=== PATIENT | male | born 1965 | race Caucasian/White ===

== ENCOUNTER 2017-03-29 20:06 | Emergency (ER) | payer OTHER ==
[~2017-03-29] VITALS: Ht 177.8 cm; Wt 100.0 kg
[~2017-03-29 20:06] MED LIST: OXYC5 PO; TAB-TAB PO
[2017-03-29 20:08] VITALS: BP 158/84; PULSE 84; RESP 16; TEMP 98.2; O2SAT 97
--- NOTE | 2017-03-29 21:35 | PD ---
Physical Exam Date Seen by Provider: Mar 29, 2017 Time Seen by Provider: 21:32 Narrative 51 y/o male with injury to Right Calf while riding a Skateboard. Patient heard a loud "pop". Now has decreased ability to Platar Flex. Pain 04/01. Vital signs reviewed. Patient stable. Awaiting Bed placement. Data Data Last Documented VS Vital Signs Date Time Temp Pulse Resp B/P Pulse Ox O2 Delivery O2 Flow Rate FiO2 03/29/17 20:08 98.2 84 16 158/84 97 Room Air [facility] Medical Record Reviewed: Yes Supervised Visit with DEMETRIO: Yes Condition: Stable Ernesto Hill Mar 29, 2017 21:35
[2017-03-29] MEDS ORDERED: HYDR-3533 PO (21:53)
--- NOTE | 2017-03-29 21:58 | PD ---
HPI Chief Complaint: Injury Time Seen by Provider: 21:55 Travel History International Travel<30 days: No Contact w/Intl Traveler<30days: No Traveled to known affect area: No History of Present Illness HPI 51-year-old white male presents to emergency Department with complaints of right posterior calf pain after riding a skateboard this evening. He states that he had felt and heard a pop in his Achilles this evening as he pushed off with his right foot. He has not been able to plantarflex since this injury. Patient denies any sensory loss. No other injuries. Pain is moderate. Worse with bearing. No alleviating factors. PFSH Past Medical History Narrative Medical Hypertension Autoimmune Disease: No Depression: Yes Cancer: No Cardiovascular Problems: No Endocrine: No Genitourinary: No Immune Disorder: No Musculoskeletal: Yes (back) Neurologic: No Psychiatric: Yes Reproductive: No Respiratory: No Past Surgical History Narrative Surgical Tonsillectomy Abdominal Surgery: No Cardiac Surgery: No Ear Surgery: No Endocrine Surgery: No Eye Surgery: No Genitourinary Surgery: No Gynecologic Surgery: No Oral Surgery: No Thoracic Surgery: No Tonsillectomy: Yes Social History Alcohol Use: Yes (OCC) Tobacco Use: Yes (PPD) Substance Use: Yes (POT OCC) Allergies-Medications (Allergen,Severity, Reaction): Coded Allergies: Sulfa (Verified Allergy, Severe, 03/29/17) Reported Meds & Prescriptions Reported Meds & Active Scripts Active Lortab (Hydrocodone-Acetaminophen) 5-325 Mg Tab 1 Tab PO Q4H PRN Reported Multivitamin (Multivitamins) 1 Tab Tab 1 Tab PO DAILY Oxycodone (Oxycodone HCl) 5 Mg Cap 15 Mg PO Q4HPRN Review of Systems Except as stated in HPI: all other systems reviewed are Neg Physical Exam Narrative GENERAL: This is a well-nourished, well-developed patient, in no apparent distress. SKIN: No rashes, ecchymoses or lesions. Warm and dry. HEAD: Atraumatic. Normocephalic. EYES: PERRL, EOMI, no discharge or injection. No scleral icterus. EARS: Clear NOSE: Nasal turbinates appear normal. THROAT: Mucosa pink and moist. Airway patent. NECK: Trachea midline. supple, moves head freely. LUNGS: Clear to auscultation. CV: Regular in rhythm. ABDOMEN: Soft nontender. EXT: No clubbing cyanosis or edema. Examination of the right lower extremity reveals a deficit at the insertion of the Achilles tendon of the right ankle. He has a negative Metcalf test on the right with a positive on the left. He has intact sensation with good distal pulses. Data Data Last Documented VS Vital Signs Date Time Temp Pulse Resp B/P Pulse Ox O2 Delivery O2 Flow Rate FiO2 03/29/17 20:08 98.2 84 16 158/84 97 Room Air Orders Ice/Cold Pack (03/29/17 21:52) Splint Or Brace Apply/Monitor (03/29/17 21:52) Crutches (03/29/17 21:52) Acetamin-Hydrocod 325-5 Mg ([place] 5-325 (03/29/17 22:00) MDM Medical Decision Making Medical Screen Exam Complete: Yes Emergency Medical Condition: Yes Medical Record Reviewed: Yes Differential Diagnosis Differential diagnoses: Ankle sprain, Achilles tendon rupture, gastroc strain Narrative Course Patient has a acute Achilles tendon rupture on the right. He is placed in a short leg splint with plantar flexion. He is given Lortab 5 milligrams and crutches. He is advised to follow-up with orthopedist. This right Achilles tendon rupture Diagnosis Primary Impression: Rupture of right Achilles tendon Qualified Code: S86.011A - Rupture of right Achilles tendon, initial encounter Referrals: Wood Payne MD 1 week Patient Instructions: General Instructions Additional Instructions: Rest. Elevation. Ice packs for the next 3 days. Splint and crutches. No weight-bearing. Medications as directed Follow-up with an orthopedist in one week. Return to the ER if any problems Med/Other Pt SpecificInfo: Prescription(s) given Scripts Hydrocodone-Acetaminophen (Lortab)5-325 Mg Tab1 Tab PO Q4H PRN (PAIN) #20 TAB Prov:Roger Michael MD 03/29/17 Disposition: 01 DISCHARGE HOME Condition: Stable Jam Peña Mar 29, 2017 21:58
[2017-03-29] MEDS ORDERED: ACETAMINOPHEN/HYDROcodone 325 MG/5 MG TAB PO ONE (22:00)
== END 2017-03-29 22:32 | disposition home or self-care (01) ==
LOC: NEPK 20:06
DX: S86.011A Strain of right Achilles tendon, initial encounter (principal); Y93.51 Activity, roller skating (inline) and skateboarding; I10 Essential (primary) hypertension; F17.290 Nicotine dependence, other tobacco product, uncomplicated
CPT/HCPCS: 29515; 99283; E0113

== ENCOUNTER 2017-08-30 08:29 | Emergency (ER) | payer OTHER ==
[~2017-08-30] VITALS: Ht 177.8 cm; Wt 99.0 kg
[~2017-08-30 08:29] MED LIST changes: +HYDR-3533 PO
[2017-08-30 08:31] VITALS: BP 123/70; PULSE 113; RESP 16; TEMP 103.1; O2SAT 94
--- NOTE | 2017-08-30 09:19 | PD ---
HPI Chief Complaint: GI Complaint Time Seen by Provider: 09:18 Travel History International Travel<30 days: No Contact w/Intl Traveler<30days: No Traveled to known affect area: No History of Present Illness HPI 51-year-old male came to the emergency room with history of coughing, fevers, vomiting for past 5 days. Patient says he has had history of fluid in the past which he usually gets better after 2-3 days but this time he seems to be getting worse. Patient is a smoker and has been a smoker for past 30 years but has not smoked during his illness. This morning he tried to drink some orange juice which made his stomach really upset and he vomited a lot. His decided to bring him into the emergency room. Patient seems to be in moderate distress. Temperature was 102.5. No known sick contacts. He does not have a diagnosed history of COPD and does not have inhalers at home. PFSH Past Medical History Narrative Medical List of his past medical, surgical, social and family history is reviewed from the nursing note. Autoimmune Disease: No Depression: Yes Cancer: No Cardiovascular Problems: No Endocrine: No Genitourinary: No Immune Disorder: No Musculoskeletal: Yes (back) Neurologic: No Psychiatric: Yes Reproductive: No Respiratory: No Past Surgical History Abdominal Surgery: No Cardiac Surgery: No Ear Surgery: No Endocrine Surgery: No Eye Surgery: No Genitourinary Surgery: No Gynecologic Surgery: No Oral Surgery: No Thoracic Surgery: No Tonsillectomy: Yes Social History Alcohol Use: Yes (OCC) Tobacco Use: Yes (PPD) Substance Use: Yes (POT OCC) Allergies-Medications (Allergen,Severity, Reaction): Coded Allergies: Sulfa (Sulfonamide Antibiotics) (Unverified Allergy, Severe, 08/30/17) Comments List of his allergies reviewed from the nursing note. Reported Meds & Prescriptions Reported Meds & Active Scripts Active Omeprazole 20 Mg Tab 20 Mg PO DAILY Zithromax Z-Kingsley (Azithromycin) 250 Mg Dspk 250 Mg PO DIRECTED 500 MG (2 tabs) day 1, then 1 tab days 2-5. Ventolin Hfa 18 GM Inh (Albuterol Sulfate) 90 Mcg/Act Aer 2 Puff INH Q4-6H PRN Lortab (Hydrocodone-Acetaminophen) 5-325 Mg Tab 1 Tab PO Q4H PRN Reported Multivitamin (Multivitamins) 1 Tab Tab 1 Tab PO DAILY Oxycodone (Oxycodone HCl) 5 Mg Cap 15 Mg PO Q4HPRN Narrative Medication List of his home medications reviewed from the nursing note. Review of Systems Except as stated in HPI: all other systems reviewed are Neg General / Constitutional: Positive: Fever, Chills Respiratory: Positive: Cough Gastrointestinal: Positive: Nausea, Vomiting Physical Exam Narrative GENERAL: Awake, alert, moderate distress SKIN: Focused skin assessment warm/dry. HEAD: Atraumatic. Normocephalic. EYES: Pupils equal and round. No scleral icterus. No injection or drainage. ENT: No nasal bleeding or discharge. Mucous membranes pink and moist. NECK: Trachea midline. No JVD. CARDIOVASCULAR: Regular rate and rhythm. No murmur appreciated. RESPIRATORY: No accessory muscle use. Coarse breath sounds GASTROINTESTINAL: Abdomen soft, non-tender, nondistended. Hepatic and splenic margins not palpable. MUSCULOSKELETAL: No obvious deformities. No clubbing. No cyanosis. No edema. NEUROLOGICAL: Awake and alert. No obvious cranial nerve deficits. Motor grossly within normal limits. Normal speech. PSYCHIATRIC: Appropriate mood and affect; insight and judgment normal. Data Data Last Documented VS Vital Signs Date Time Temp Pulse Resp B/P (MAP) Pulse Ox O2 Delivery O2 Flow Rate FiO2 08/30/17 12:00 08/30/17 11:59 99.4 90 16 98 08/30/17 10:20 Room Air Orders Orders Basic Metabolic Panel (Bmp) (08/30/17 09:32) Complete Blood Count With Diff (08/30/17 09:32) Chest, Single Ap (08/30/17 09:32) Ecg Monitoring (08/30/17 09:32) Iv Access Insert/Monitor (08/30/17 09:32) Oximetry (08/30/17 09:32) Oxygen Administration (08/30/17 09:32) Albuterol Neb (Albuterol Neb) (08/30/17 09:45) Sodium Chloride 0.9% Flush (Ns Flush) (08/30/17 09:45) Influenzae A/B Antigen (08/30/17 09:32) Ketorolac Inj (Toradol Inj) (08/30/17 09:45) Acetaminophen (Tylenol) (08/30/17 09:45) Sodium Chlor 0.9% 1000 Ml Inj (Ns 1000 M (08/30/17 09:45) Ondansetron Inj (Zofran Inj) (08/30/17 11:00) Pantoprazole Inj (Protonix Inj) (08/30/17 11:30) Ed Discharge Order (08/30/17 11:23) Electrocardiogram (08/30/17 09:00) Labs Laboratory Tests Test 08/30/17 09:52 White Blood Count 12.2 TH/MM3 Red Blood Count 6.07 MIL/MM3 Hemoglobin 18.5 GM/DL Hematocrit 52.2 % Mean Corpuscular Volume 86.0 FL Mean Corpuscular Hemoglobin 30.5 PG Mean Corpuscular Hemoglobin Concent 35.5 % Red Cell Distribution Width 13.8 % Platelet Count 143 TH/MM3 Mean Platelet Volume 9.4 FL Neutrophils (%) (Auto) 80.4 % Lymphocytes (%) (Auto) 8.8 % Monocytes (%) (Auto) 10.6 % Eosinophils (%) (Auto) 0.0 % Basophils (%) (Auto) 0.2 % Neutrophils # (Auto) 9.8 TH/MM3 Lymphocytes # (Auto) 1.1 TH/MM3 Monocytes # (Auto) 1.3 TH/MM3 Eosinophils # (Auto) 0.0 TH/MM3 Basophils # (Auto) 0.0 TH/MM3 CBC Comment DIFF FINAL Differential Comment Blood Urea Nitrogen 19 MG/DL Creatinine 1.07 MG/DL Random Glucose 99 MG/DL Calcium Level 8.6 MG/DL Sodium Level 128 MEQ/L Potassium Level 4.5 MEQ/L Chloride Level 95 MEQ/L Carbon Dioxide Level 24.1 MEQ/L Anion Gap 9 MEQ/L Estimat Glomerular Filtration Rate 73 ML/MIN [facility] Medical Decision Making Medical Screen Exam Complete: Yes Emergency Medical Condition: Yes Medical Record Reviewed: Yes Interpretation(s) Twelve-lead EKG was reviewed by me. Normal sinus rhythm, normal axis, tachycardia, nonspecific ST-T wave changes. Heart rate of 103 bpm. Differential Diagnosis Pneumonia, bronchitis, COPD exacerbation, influenza a, viral illness and dehydration Narrative Course 11:37 AM patient was given IV fluid bolus, DuoNeb and Toradol for the pain. I went back and reassessed him and he looks a little better. He says he started getting heartburn which I have ordered Protonix IV. Influenza A is positive. Blood test result shows some signs of dehydration like polycythemia and hyponatremia. I've given him instructions for not smoking and he will go home on medications including CPAP for his chest x-ray findings. Patient is comfortable with that plan. Given the fact that this is history of his illness he is not a candidate for Tamiflu at this point which have explained to him. Diagnosis Primary Impression: Influenza A Additional Impressions: Acute bronchitis Qualified Codes: J20.8 - Acute bronchitis due to other specified organisms Dehydration Hyponatremia Needs smoking cessation education Referrals: Primary Care Physician Med/Other Pt SpecificInfo: Prescription(s) given Scripts Omeprazole (Omeprazole) 20 Mg Tab 20 MG PO DAILY, #30 TAB 0 Refills Prov: Popeye Anderson MD 08/30/17 Azithromycin (Zithromax Z-Kingsley) 250 Mg Dspk 250 MG PO DIRECTED for Infection, #1 DSPK 0 Refills 500 MG (2 tabs) day 1, then 1 tab days 2-5. Prov: Popeye Anderson MD 08/30/17 Albuterol 18 GM Inh (Ventolin Hfa 18 GM Inh) 90 Mcg/Act Aer 2 PUFF INH Q4-6H Y for SHORTNESS OF BREATH, #1 INHALER 0 Refills Prov: Popeye Anderson MD 08/30/17 Disposition: 01 DISCHARGE HOME Condition: Stable Popeye Anderson MD Aug 30, 2017 09:19
[2017-08-30] MEDS ORDERED: SODIUM CHLOR 0.9% 1000 ML INJ 1,000 ML IV ONE (09:45)
[2017-08-30] MEDS ORDERED: KETOROLAC TROMETHAMINE 30 MG/ML (IVP) VIAL IV PUSH ONE (09:45)
[2017-08-30] MEDS ORDERED: SODIUM CHLORIDE 0.9% FLUSH 10 ML FLUSH IVF PRN (09:45)
[2017-08-30] MEDS ORDERED: ACETAMINOPHEN 325 MG TAB PO ONE (09:45)
[2017-08-30] MEDS: RESP: ALBUTEROL 2.5 MG/3 ML NEB (SCH) INH (09:48)
--- NOTE | 2017-08-30 10:06 | RADRPT ---
EXAM DATE/TIME: 08/30/2017 09:39 [facility] COMPARISON: No previous studies available for comparison. INDICATIONS : Fever, cough, vomiting, chills, short of breath x1 week. MEDICAL HISTORY : None. SURGICAL HISTORY : None. ENCOUNTER: Initial ACUITY: 1 week PAIN SCORE: 0/10 LOCATION: Bilateral chest FINDINGS: Moderate peribronchial thickening and bibasilar parenchymal changes. The heart and pulmonary vascular ity are normal. The portion of the bony skeleton visualized is unremarkable. CONCLUSION: Moderate peribronchial thickening without consolidation.. Tim Gordillo MD FACR on August 30, 2017 at 10:03 Board Certified Radiologist. This report was verified electronically.
[2017-08-30 10:12] LABS: AUTOMATED NEUTROPHIL # 9.8 TH/MM3 (1.8-7.7); BASOPHIL % 0.2 % (0.0-2.0); HEMATOCRIT 52.2 % (39.0-51.0); HEMOGLOBIN 18.5 GM/DL (13.0-17.0); LYMPH % 8.8 % (9.0-44.0); LYMPHOCYTE # 1.1 TH/MM3 (1.0-4.8); MEAN CORPUSCULAR HEMOGLOBIN 30.5 PG (27.0-34.0); MEAN CORPUSCULAR HGB CONC 35.5 % (32.0-36.0); MEAN PLATELET VOLUME 9.4 FL (7.0-11.0); MONO % 10.6 % (0.0-8.0); MONOCYTE # 1.3 TH/MM3 (0-0.9); NEUT % 80.4 % (16.0-70.0); PLATELET COUNT 143 TH/MM3 (150-450); RED BLOOD COUNT 6.07 MIL/MM3 (4.50-5.90); RED CELL DISTRIBUTION WIDTH 13.8 % (11.6-17.2); WHITE BLOOD COUNT 12.2 TH/MM3 (4.0-11.0)
[2017-08-30 10:32] LABS: BICARBONATE 24.1 MEQ/L (21.0-32.0); CALCIUM 8.6 MG/DL (8.5-10.1); CREATININE 1.07 MG/DL (0.60-1.30)
[2017-08-30] MEDS ORDERED: ONDANSETRON HCL 4 MG/2 ML VIAL IV PUSH ONE (11:00)
[2017-08-30] MEDS ORDERED: PANTOPRAZOLE SODIUM 40 MG VIAL IV PUSH ONE (11:30)
[2017-08-30] MEDS ORDERED: OMEP20TA93 PO (11:32)
[2017-08-30] MEDS ORDERED: VENTAER INH (11:32)
[2017-08-30] MEDS ORDERED: ZITHTAB PO (11:32)
[2017-08-30 11:59] VITALS: BP 102/89; PULSE 90; RESP 16; TEMP 99.4; O2SAT 98
--- NOTE | 2017-08-30 18:55 | EKG ---
Date Performed: 08/30/2017 Time Performed: 09:00:29 PTAGE: 51 years EKG: SINUS TACHYCARDIA ABNORMAL RHYTHM ECG PREVIOUS TRACING : 06/24/2011 21.15 Compared to prior tracing no significant change DOCTOR: Miri Beltre Interpretating Date/Time 08/30/2017 18:55:15
== END 2017-08-30 12:05 | disposition home or self-care (01) ==
LOC: NEPE 08:29
DX: J09.X2 Influenza due to identified novel influenza A virus with other respiratory manifestations (principal); J20.9 Acute bronchitis, unspecified; E86.0 Dehydration; E87.1 Hypo-osmolality and hyponatremia; R00.0 Tachycardia, unspecified; R11.10 Vomiting, unspecified; R94.31 Abnormal electrocardiogram [ECG] [EKG]; F32.9 Major depressive disorder, single episode, unspecified; F17.200 Nicotine dependence, unspecified, uncomplicated
CPT/HCPCS: 71045; 80048; 85025; 87804; 93005; 94664; 96361; 96374; 96375; 99285; C9113; J1885; J2405; J7030; J7613